=== PATIENT | male | born 1940 | race Asian ===

== ENCOUNTER 2021-03-05 09:10 | Emergency (ER) | payer OTHER ==
--- NOTE | 2021-03-05 09:40 | RAD REPORT ---
EXAM DESCRIPTION: CT - CTHCSPWOC - 03/05/2021 9:29 am CLINICAL HISTORY: Trauma, head and neck injury. fall COMPARISON: No comparisons TECHNIQUE: Axial 5 mm thick images of the head were obtained. Axial 2 mm thick images of the cervical spine were obtained with sagittal and coronal reconstruction images generated and reviewed. All CT scans are performed using dose optimization technique as appropriate and may include automated exposure control or mA/KV adjustment according to patient size. FINDINGS: CT HEAD WITHOUT CONTRAST: No acute hemorrhage, hydrocephalus or extra-axial collection is identified.Mild generalized brain atr ophy is present with mild periventricular and deep white matter chronic microvascular ischemic change s.No areas of brain edema or midline shift. Left mastoid effusion noted.Prominent sclerosis of both mastoid air cells, greater on the right.The c alvarium is intact. CT CERVICAL SPINE WITHOUT CONTRAST: No fracture or subluxation.Mild cervical degenerative changes are present.No prevertebral soft tissue s swelling is identified. Mild carotid atherosclerosis. IMPRESSION: No acute intracranial or cervical spine findings. Left mastoid effusion.
--- NOTE | 2021-03-05 09:42 | RAD REPORT ---
EXAM DESCRIPTION: CT - CTFB CLINICAL HISTORY: fall Trauma, pain facial injury. COMPARISON: No comparisons TECHNIQUE: Axial 2 mm thick images of the face were obtained with sagittal and coronal reconstructio n images. All CT scans are performed using dose optimization technique as appropriate and may include automated exposure control or mA/KV adjustment according to patient size. FINDINGS: No acute facial bone fracture is seen.The mandible is intact. The globes and orbital contents are grossly unremarkable.The paranasal sinuses and mastoids are clear . IMPRESSION: Negative for facial bone fracture.
[2021-03-05] MEDS ORDERED: LIDOCAINE 1% W/EPI 1:100,000 MDV 20 ML VIAL ONE (10:52)
--- NOTE | 2021-03-05 11:09 | RAD REPORT ---
EXAM DESCRIPTION: RAD - Knee Left 3 View - 03/05/2021 10:59 am CLINICAL HISTORY: PAIN COMPARISON: No comparisons FINDINGS: Moderate soft tissue swelling is present anterior to the patella and patella tendon. A sma ll to moderate suprapatellar joint effusion is present. No acute fracture clearly demonstrated. If pa in persists, follow-up MR imaging would be recommended.
--- NOTE | 2021-03-05 11:12 | RAD REPORT ---
EXAM DESCRIPTION: RAD - Knee Right 3 View - 03/05/2021 10:59 am CLINICAL HISTORY: fall COMPARISON: No comparisons FINDINGS: No acute fracture or dislocation is seen.
--- NOTE | 2021-03-05 12:24 | ER ---
Nurse's Notes [facility] Name: Suhas Marshall Age: 80 yrs Sex: Male : 1940 Arrival Date: 03/05/2021 Time: 09:11 Bed 7 Private MD: Diagnosis: Head Injury;Facial Laceration;Internal Derangement of the Knee Presentation: 03/05 09:11 Chief complaint: EMS states: FALL WHILE RUNNING. Care prior to arrival: Cervical collar bp in place. Mechanism of Injury: Fall from standing position. Trauma event details: Injury occurred in the [facility], Injury occurred: in a public building. Injury occurred: March 05, 2021 Injury occurred at: 08:00. 09:11 Acuity: DEE 3 bp 09:11 Method Of Arrival: EMS: [facility] bp 09:20 Coronavirus screen: At this time, the client does not indicate any symptoms associated bp with coronavirus-19. Ebola Screen: No symptoms or risks identified at this time. Initial Sepsis Screen: Does the patient meet any 2 criteria? No. Patient's initial sepsis screen is negative. Does the patient have a suspected source of infection? No. Patient's initial sepsis screen is negative. Risk Assessment: Do you want to hurt yourself or someone else? Patient reports no desire to harm self or others. Onset of symptoms was March 05, 2021 at 08:00. Triage Assessment: 09:23 General: SEE TRAUMA NOTE. bp Trauma Activation: Consult Physician: ED Physician; Name: ; Notified At: ; Arrived At: Physician: General Surgeon; Name: ; Notified At: ; Arrived At: Physician: Radiology; Name: ; Notified At: ; Arrived At: Physician: Respiratory; Name: ; Notified At: ; Arrived At: Physician: Lab; Name: ; Notified At: ; Arrived At: Historical: - Allergies: 09:23 No Known Allergies; bp - Home Meds: 09:23 None [Active]; bp - PMHx: 09:23 None; bp - Immunization history: Last tetanus immunization: unknown. - Social history:: Smoking status: Patient denies any tobacco usage or history of. Screenin:14 Abuse screen: Denies threats or abuse. Denies injuries from another. Tuberculosis bp screening: No symptoms or risk factors identified. 09:24 Nutritional screening: No deficits noted. Fall Risk Fall in past 12 months (25 points). bp No secondary diagnosis (0 pts). No IV (0 pts). Ambulatory Aid- None/Bed Rest/Nurse Assist (0 pts). Gait- Normal/Bed Rest/Wheelchair (0 pts). Primary Survey: 09:14 NO uncontrolled hemorrhage observed. A: The patient is alert. Airway: patent. bp Breathing/Chest: Respiratory pattern: regular, Respiratory effort: spontaneous, unlabored. Circulation: Skin temperature: warm, dry. Disability Alert. Exposure/Environment: All clothing and personal items were removed. Forensic evidence collection is not deemed to be indicated at this time. Items placed in patient belonging bag. There is no evidence of uncontrolled external bleeding. Obvious injury(ies) are noted at this time: LAC TO CHIN, LAC TO LOWER LIP, ABRASION TO R KNEE, ABRASION TO R KNEE. LEFT KNEE INFLAMMED A warming method has been applied: A warm blanket has been provided to the patient. Assessment: 09:14 General: Appears distressed, uncomfortable, Behavior is cooperative, appropriate for bp age, anxious. Pain: Complains of pain in right jaw, right wrist and right knee. Neuro: No deficits noted. EENT: No deficits noted. Cardiovascular: No deficits noted. Respiratory: No deficits noted. GI: No signs and/or symptoms were reported involving the gastrointestinal system. : No signs and/or symptoms were reported regarding the genitourinary system. Derm: No deficits noted. Musculoskeletal: No deficits noted. Injury Description: Laceration sustained to submental area. 10:31 Reassessment: No changes from previously documented assessment. Patient and/or family bp updated on plan of care and expected duration. Pain level reassessed. PT RETURNED FROM RAD. Vital Signs: 09:14 BP 173 / 83; Pulse 87; Resp 16; Temp 97.8(TE); Pulse Ox 98% on R/A; Weight 73.48 kg; dh3 Height 5 ft. 5 in. (165.10 cm); Pain 9/10; 10:30 BP 159 / 84; Pulse 82; Resp 16; Pulse Ox 100% ; bp 09:14 Body Mass Index 26.96 (73.48 kg, 165.10 cm) dh3 [place] Coma Score: 09:14 Eye Response: spontaneous(4). Verbal Response: oriented(5). Motor Response: obeys bp commands(6). Total: 15. Trauma Score (Adult): 09:14 Eye Response: spontaneous(1); Verbal Response: oriented(1); Motor Response: obeys bp commands(2); Systolic BP: > 89 mm Hg(4); Respiratory Rate: 10 to 29 per min(4); Pardeep Score: 15; Trauma Score: 12 ED Course: 09:11 Patient arrived in ED. bp 09:12 Devendra Marquez PA is PHCP. [facility] 09:12 Pollo Ramirez MD is Attending Physician. [facility] 09:13 Triage completed. bp 09:14 Patient has correct armband on for positive identification. Bed in low position. Call bp light in reach. Side rails up X2. 09:16 Attending Physician role handed off by Pollo Ramirez MD [facility] 09:16 Conner Voss MD is Attending Physician. leann 09:23 Arm band placed on. bp 09:29 CT Head C Spine In Process Unspecified. EDMS 09:29 CT Facial Bones W/O Con In Process Unspecified. EDMS 10:21 Dread Bishop, RN is Primary Nurse. bp 10:59 Knee Right 3 View XRAY In Process Unspecified. EDMS 10:59 Knee Left 3 View XRAY In Process Unspecified. EDMS 13:05 Knee immobilizer applied on left knee. em1 Administered Medications: 10:30 Drug: Lidocaine-Epinephrine -1%: (1:100,000) 20 ml {Note: AT B/S FOR PROVIDER.} Volume: bp 20 ml; Route: Infiltration; Output: 10:33 Urine: 0ml; Total: 0ml. bp Outcome: 12:23 Discharge ordered by . [facility] 13:08 Patient left the ED. em1 Signatures: Dispatcher [employer] EDConner Layton MD MD cha Mickail, Joel, PA PA jmm Martinez, Eric em1 Jennifer Cole [facility] Dread Bishop, RN RN bp
--- NOTE | 2021-03-05 12:24 | EDPHYS ---
Physician Documentation [facility] Name: Suhas Marshall Age: 80 yrs Sex: Male : 1940 Arrival Date: 03/05/2021 Time: 09:11 Bed 7 Private MD: ED Physician Conner Voss HPI: 03/05 09:13 This 80 yrs old Male presents to ER via EMS with complaints of Fall Injury. [facility] 09:13 Details of fall: The patient fell from an upright position, while walking. Onset: The [facility] symptoms/episode began/occurred acutely, just prior to arrival. Associated injuries: The patient sustained injury to the head. 11:50 The patient has not experienced similar symptoms in the past. This is a 80-year-old [facility] male that presents emerge department after a fall which occurred just prior to arrival. Patient tripped left knee pain. Denies LOC hitting his face against the bed of a truck. Denies LOC. Patient also complains of. Historical: - Allergies: 09:23 No Known Allergies; bp - Home Meds: 09:23 None [Active]; bp - PMHx: 09:23 None; bp - Immunization history: Last tetanus immunization: unknown. - Social history:: Smoking status: Patient denies any tobacco usage or history of. ROS: 11:50 Constitutional: Negative for fever, chills, and weight loss, Cardiovascular: Negative jmm for chest pain, palpitations, and edema, Respiratory: Negative for shortness of breath, cough, wheezing, and pleuritic chest pain. 11:50 MS/extremity: Positive for injury or acute deformity. 11:50 All other systems are negative. Exam: 11:50 Constitutional: This is a well developed, well nourished patient who is awake, alert, jmm and in no acute distress. 11:50 Eyes: EOMI, no conjunctival erythema appreciated ENT: Moist Mucus Membranes Neck: Trachea midline, Supple Chest/axilla: Normal chest wall appearance and motion. Cardiovascular: Regular rate and rhythm. No edema appreciated Respiratory: Normal respirations, no respiratory distress appreciated Abdomen/GI: Non distended, soft Back: Normal ROM Skin: General appearance color normal 11:50 Head/face: Multiple lacerations multiple lacerations noted to the face. 11:50 Musculoskeletal/extremity: Multiple lacerations noted to the upper lip approximately 3 cm, abrasion noted to the anterior surface of the right knee, right side of the chin. 11:50 Musculoskeletal/extremity: Swelling noted to swelling noted to the left knee, full range of motion, compartments are soft, neurovascular intact. 11:50 Skin: Appearance: Color: normal in color. 11:50 Neuro: Orientation: is normal, Mentation: is normal, Memory: is normal. 11:50 Psych: Behavior/mood is pleasant, cooperative. Vital Signs: 09:14 BP 173 / 83; Pulse 87; Resp 16; Temp 97.8(TE); Pulse Ox 98% on R/A; Weight 73.48 kg; dh3 Height 5 ft. 5 in. (165.10 cm); Pain 9/10; 10:30 BP 159 / 84; Pulse 82; Resp 16; Pulse Ox 100% ; bp 09:14 Body Mass Index 26.96 (73.48 kg, 165.10 cm) dh3 [place] Coma Score: 09:14 Eye Response: spontaneous(4). Verbal Response: oriented(5). Motor Response: obeys bp commands(6). Total: 15. Trauma Score (Adult): 09:14 Eye Response: spontaneous(1); Verbal Response: oriented(1); Motor Response: obeys bp commands(2); Systolic BP: > 89 mm Hg(4); Respiratory Rate: 10 to 29 per min(4); [place] Score: 15; Trauma Score: 12 Procedures: 11:50 Splinting: Splint applied to left leg. [facility] Laceration: 11:50 Wound Repair of 1cm ( 0.4in ) subcutaneous laceration to face. Distal [facility] neuro/vascular/tendon intact. Wound prep: Simple cleansing with betadine by me. Patient tolerated well. 11:50 Wound Repair of 3cm ( 1.2in ) subcutaneous laceration to face. Distal [facility] neuro/vascular/tendon intact. Anesthesia: Local anesthetic administered with 3 mls of 1% lidocaine w/ Epi. Wound prep: Simple cleansing with betadine by me. Skin closed with 6 5-0 chromic gut using simple sutures and sterile technique. Patient tolerated fair. MDM: 09:17 Patient medically screened. [facility] 12:22 Data reviewed: vital signs, nurses notes. Counseling: I had a detailed discussion with jmm the patient and/or guardian regarding: the historical points, exam findings, and any diagnostic results supporting the discharge/admit diagnosis, radiology results, the need for outpatient follow up, to return to the emergency department if symptoms worsen or persist or if there are any questions or concerns that arise at home. 03/05 09:13 Order name: CT Head C Spine; Complete Time: 09:44 [facility] 03/05 09:13 Order name: CT Facial Bones W/O Con; Complete Time: 09:44 [facility] 03/05 09:34 Order name: Knee Right 3 View XRAY; Complete Time: 11:32 [facility] 03/05 09:34 Order name: Knee Left 3 View XRAY; Complete Time: 11:32 [facility] 03/05 11:35 Order name: Knee Immobilizer: left knee; Complete Time: 13:04 [facility] Administered Medications: 10:30 Drug: Lidocaine-Epinephrine -1%: (1:100,000) 20 ml {Note: AT B/S FOR PROVIDER.} Volume: bp 20 ml; Route: Infiltration; Disposition Summary: 03/05/21 12:23 Discharge Ordered Location: Home [facility] Condition: Stable [facility] Diagnosis - Head Injury jmm - Facial Laceration jm - Internal Derangement of the Knee [facility] Followup: [facility] - With: Private Physician - When: 2 - 3 days - Reason: Recheck today's complaints, Continuance of care, Re-evaluation by your physician Discharge Instructions: - Discharge Summary Sheet jmm - Head Injury, Adult jmm - Acute Knee Pain, Adult [facility] Forms: - Medication Reconciliation Form [facility] - Thank You Letter [facility] - Antibiotic Education [facility] - Prescription Opioid Use [facility] Prescriptions: - orphenadrine citrate 100 mg Oral Tablet Sustained Release - take 1 tablet by ORAL route 2 times per day As needed; 20 tablet; Refills: 0, [facility] Product Selection Permitted Addendum: 03/09/2021 06:54 Co-signature as Attending Physician, Conner Voss MD I agree with the assessment and c vergara plan of care. Signatures: Dispatcher [employer] Conner Vila MD MD cha Mickail, Joel, PA PA Dread Welch, RN RN bp
[2021-03-05] MEDS ORDERED: HYDROCODONE/APAP 5/325 MG TAB ONE (13:12)
[2021-03-05 13:13] VITALS: TEMP 97.8
[2021-03-05 13:14] VITALS: BP 159/84; O2SAT 100
== END 2021-03-05 13:08 | disposition home or self-care (01) ==
LOC: ER 09:10
PROC: 0JQ10ZZ Repair Face Subcutaneous Tissue and Fascia, Open Approach (ICD-10-PCS; principal; 2021-03-05)
DX: S01.81XA Laceration without foreign body of other part of head, initial encounter (principal); M23.92 Unspecified internal derangement of left knee; W01.198A Fall on same level from slipping, tripping and stumbling with subsequent striking against other object, initial encounter; Y93.01 Activity, walking, marching and hiking
CPT/HCPCS: 70450; 70486; 72125; 76377; 99284